=== PATIENT | female | born 1985 | race American Indian/Alaskan Native ===

== ENCOUNTER 2019-07-11 16:46 | Emergency (ER) | payer SELFPAY ==
[2019-07-11 17:37] VITALS: BP 124/80
--- NOTE | 2019-07-11 21:34 | Emergency Department Report ---
ED General Adult HPI - General Chief complaint: Earache Stated complaint: RT EAR PAIN/POSSIBLE INFECTION Time Seen by Provider: 07/11/19 19:58 Source: patient Mode of arrival: Ambulatory Limitations: No Limitations - History of Present Illness Initial comments: 33yo BF states that she has R ear and posterior R ear pain x 5 days with no relief and OTC medications have not given her any relief. She further states that she been treated prior for posterior ear pain with Clindamycin and pain medication. -: days(s) (5) Location: head (R ear) Radiation: neck Severity scale (0 -10): 8 Quality: aching Consistency: constant Improves with: none Worsens with: other (palpation and pressure) Associated Symptoms: denies other symptoms Treatments Prior to Arrival: NSAID - Related Data Previous Rx's Medication Instructions Recorded Last Taken Type HYDROcodone/APAP 5-325 [[place] 1 each PO Q6HR PRN #16 tablet 01/02/14 Unknown Rx 5/325 mg] Metoclopramide HCl [Reglan] 10 mg PO Q6H PRN #16 tablet 01/02/14 Unknown Rx Allergies Allergy/AdvReac Type Severity Reaction Status Date / Time amoxicillin [Amoxicillin] Allergy Hives Verified 07/11/19 16:49 latex Allergy Itching Verified 07/11/19 16:49 ED Review of Systems ROS: Stated complaint: RT EAR PAIN/POSSIBLE INFECTION Other details as noted in HPI Comment: All other systems reviewed and negative ENT: as per HPI ED Past Medical Hx - Past Medical History Previous Medical History?: Yes Additional medical history: Slater palsy, carpal tunnel. - Surgical History Past Surgical History?: Yes Additional Surgical History: umbilical hernia, tonsillectomy - Social History Smoking Status: Never Smoker Substance Use Type: None - Medications Home Medications: Home Medications Medication Instructions Recorded Confirmed Last Taken Type HYDROcodone/APAP 5-325 [[place] 1 each PO Q6HR PRN #16 tablet 01/02/14 Unknown Rx 5/325 mg] Metoclopramide HCl [Reglan] 10 mg PO Q6H PRN #16 tablet 01/02/14 Unknown Rx ED Physical Exam - General Limitations: No Limitations General appearance: alert, in no apparent distress - Head Head exam: Present: atraumatic, normocephalic - Eye Eye exam: Present: normal appearance, PERRL, EOMI Pupils: Present: normal accommodation - ENT ENT exam: Present: other (R TM dull) - Neck Neck exam: Present: tenderness (post-auricular lymph node tenderness) - Respiratory Respiratory exam: Present: normal lung sounds bilaterally. Absent: respiratory distress, wheezes - Cardiovascular Cardiovascular Exam: Present: regular rate, normal rhythm, normal heart sounds - GI/Abdominal GI/Abdominal exam: Present: soft. Absent: distended, tenderness, guarding - Rectal Rectal exam: Present: deferred - Extremities Exam Extremities exam: Present: normal inspection, full ROM. Absent: tenderness - Back Exam Back exam: Present: normal inspection, full ROM. Absent: tenderness - Neurological Exam Neurological exam: Present: alert, altered, oriented X3 - Psychiatric Psychiatric exam: Present: normal affect, normal mood. Absent: depressed - Skin Skin exam: Present: warm, dry, intact ED Course Vital Signs 07/11/19 17:36 Temperature 98.4 F Pulse Rate 102 H Respiratory 18 Rate Blood Pressure 124/80 O2 Sat by Pulse 100 Oximetry ED Medical Decision Making - Medical Decision Making 33yo BF states that she has R ear and posterior R ear pain x 5 days with no relief and OTC medications have not given her any relief. She further states that she been treated prior for posterior ear pain with Clindamycin and pain medication. An order was placed for neck imaging and an order for Tylenol 650 mg was made. The pt stated that she would like Tylenol #3 instead and eloped due to not receiving what she asked for. Critical care attestation.: If time is entered above; I have spent that time in minutes in the direct care of this critically ill patient, excluding procedure time. ED Disposition Disposition: ELOPED Is pt being admited?: No Does the pt Need Aspirin: No Condition: Stable Referrals: PRIMARY CARE, [Primary Care Provider] - 3-5 Days
[2019-07-11] MEDS ORDERED: ACETAMINOPHEN 325 MG TAB PO ONE (21:37)
[2019-07-11] MEDS ORDERED: ACETAMINOPHEN 325 MG TAB ONE (21:40)
== END 2019-07-11 21:40 | disposition left against medical advice (07) ==
LOC: ED 16:46
DX: H92.01 Otalgia, right ear (principal); Z53.21 Procedure and treatment not carried out due to patient leaving prior to being seen by health care provider